=== PATIENT | female | born 1960 | race Caucasian/White ===

== ENCOUNTER 2023-08-15 11:35 | Emergency (ER) | payer OTHER, MEDICARE ==
[~2023-08-15] VITALS: Ht 154.9 cm; Wt 45.4 kg
[2023-08-15] MEDS ORDERED: KEFLEX500 MG PO (15:15)
[2023-08-15 15:40] VITALS: BP 142/58
== END 2023-08-15 15:40 | disposition home or self-care (01) | DRG 603 ==
LOC: ED 11:35
DX: L03.113 Cellulitis of right upper limb (principal); E78.5 Hyperlipidemia, unspecified